=== PATIENT | male | born 1990 | race African-American/Black ===

== ENCOUNTER 2017-01-28 11:35 | Emergency (ER) | payer SELFPAY ==
[~2017-01-28] VITALS: Ht 180.3 cm; Wt 73.0 kg
[2017-01-28 11:44] VITALS: BP 145/88
== END 2017-01-28 13:15 | disposition home or self-care (01) ==
LOC: ER 13:07
DX: J45.909 Unspecified asthma, uncomplicated (principal); J30.2 Other seasonal allergic rhinitis; H60.91 Unspecified otitis externa, right ear
CPT/HCPCS: 71020; 99284